=== PATIENT | male | born 1950 | race Caucasian/White ===

== ENCOUNTER 2019-11-07 09:57 | Emergency (ER) | payer MEDICARE ==
[~2019-11-07] VITALS: Ht 177.8 cm; Wt 93.0 kg
[2019-11-07] MEDS ORDERED: ASPIRIN ADULT L81 MG PO (10:39)
[2019-11-07] MEDS ORDERED: ALTOPREV40 MG PO (10:39)
[2019-11-07] MEDS ORDERED: OMEPRAZOLE DR20 MG PO (10:40)
[2019-11-07] MEDS ORDERED: VITAMIN D400 UNI1 PO (10:41)
[2019-11-07] MEDS ORDERED: B-12250 MCG PO (10:41)
[2019-11-07 11:01] LABS: HEMATOCRIT 46.8 % (39.0-50.0); HEMOGLOBIN 15.6 g/dl (14.0-18.0); IMMATURE GRANULOCYTES 0.5 % (0.0-5.0); MEAN CELL VOLUME 97.3 fL CALC (80.0-100.0); MEAN CORPUSCULAR HGB 32.4 pG CALC (26.0-32.0); MEAN CORPUSCULAR HGB CONC 33.3 g/L CALC (32.0-36.0); NEUT# 4.17 thou/uL (1.82-7.42); RED BLOOD COUNT 4.81 mill/uL (4.70-6.10)
[2019-11-07 11:18] LABS: URINE BILIRUBIN - DIPSTICK NEGATIVE (NEGATIVE); URINE BLOOD DIPSTICK NEGATIVE (NEGATIVE); URINE COLOR YELLOW; URINE GLUCOSE - DIPSTICK NEGATIVE (NEGATIVE); URINE KETONE NEGATIVE (NEGATIVE); URINE LEUK ESTERASE NEGATIVE (NEGATIVE); URINE NITRITE - DIPSTICK NEGATIVE (Negative); URINE PROTEIN - DIPSTICK NEGATIVE (NEG-TRACE); URINE UROBILINOGEN - DIPSTICK 0.2 E.U./dL (0.2)
[2019-11-07 11:23] LABS: ALBUMIN 4.6 g/dL (3.2-5.0); ALKALINE PHOSPHATASE 81 u/l (38-126); ANION GAP 18 (6-22 (CALC)); BILIRUBIN, TOTAL 0.9 mg/dL (0.0-1.4); BUN 11 mg/dL (8-23); BUN/CREATININE RATIO 18 (12-20 (CALC)); CARBON DIOXIDE 22 mmol/l (22-30); CHLORIDE 104 mmol/l (95-108); CREATININE 0.6 mg/dL (0.7-1.3); GFR > 60 ML/MIN (>=60 (CALC)); GFR FOR AFR.AMER. > 60 ML/MIN (>=60 (CALC)); LIPASE 121 u/l (23-300); POTASSIUM 4.6 mmol/l (3.5-5.1); SGOT/AST 51 u/l (19-48); SODIUM 139 mmol/l (137-146); TOTAL PROTEIN 7.8 g/dL (6.3-8.2)
[2019-11-07 13:05] VITALS: BP 130/75
[2019-12-11] MEDS ORDERED: LEVOTHYROXIN100 MCG PO (10:53)
[2019-12-11] MEDS ORDERED: PROAIR HFA IN (10:54)
[2019-12-11] MEDS ORDERED: [UNRECOGNIZED DRUG - OTHER] OU (10:56)
== END 2019-11-07 13:05 | disposition home or self-care (01) ==
LOC: ED 09:57
PROVIDERS: Family Medicine
DX: K40.90 Unilateral inguinal hernia, without obstruction or gangrene, not specified as recurrent (principal)
CPT/HCPCS: Q9967

== ENCOUNTER 2019-11-17 11:11 | Observation (INO) | payer MEDICARE ==
[~2019-11-17] VITALS: Ht 177.8 cm; Wt 92.5 kg
[~2019-11-17 11:11] MED LIST: ALTOPREV40 MG PO; ASPIRIN ADULT L81 MG PO; B-12250 MCG PO; OMEPRAZOLE DR20 MG PO; VITAMIN D400 UNI1 PO
[2019-11-17 12:46] LABS: HEMATOCRIT 46.9 % (39.0-50.0); HEMOGLOBIN 15.9 g/dl (14.0-18.0); IMMATURE GRANULOCYTES 0.3 % (0.0-5.0); MEAN CELL VOLUME 96.1 fL CALC (80.0-100.0); MEAN CORPUSCULAR HGB 32.6 pG CALC (26.0-32.0); MEAN CORPUSCULAR HGB CONC 33.9 g/L CALC (32.0-36.0); NEUT# 5.07 thou/uL (1.82-7.42); RED BLOOD COUNT 4.88 mill/uL (4.70-6.10); RED CELL DISTRI WIDTH 13.1 % (11.5-15.5)
[2019-11-17 13:12] LABS: ALBUMIN 4.5 g/dL (3.2-5.0); ALKALINE PHOSPHATASE 68 u/l (38-126); AMYLASE 57 u/l (30-110); ANION GAP 15 (6-22 (CALC)); BILIRUBIN, TOTAL 0.8 mg/dL (0.0-1.4); BUN 12 mg/dL (8-23); BUN/CREATININE RATIO 26 (12-20 (CALC)); CARBON DIOXIDE 24 mmol/l (22-30); CHLORIDE 101 mmol/l (95-108); CREATININE 0.5 mg/dL (0.7-1.3); GFR > 60 ML/MIN (>=60 (CALC)); GFR FOR AFR.AMER. > 60 ML/MIN (>=60 (CALC)); LIPASE 72 u/l (23-300); POTASSIUM 4.1 mmol/l (3.5-5.1); SGOT/AST 43 u/l (19-48); SODIUM 136 mmol/l (137-146); TOTAL PROTEIN 7.7 g/dL (6.3-8.2)
[2019-11-17 17:30] VITALS: BP 130/84
[2019-11-17 17:33] LABS: URINE BILIRUBIN - DIPSTICK NEGATIVE (NEGATIVE); URINE BLOOD DIPSTICK NEGATIVE (NEGATIVE); URINE COLOR YELLOW; URINE GLUCOSE - DIPSTICK NEGATIVE (NEGATIVE); URINE KETONE NEGATIVE (NEGATIVE); URINE LEUK ESTERASE NEGATIVE (NEGATIVE); URINE NITRITE - DIPSTICK NEGATIVE (Negative); URINE PROTEIN - DIPSTICK NEGATIVE (NEG-TRACE); URINE UROBILINOGEN - DIPSTICK 0.2 E.U./dL (0.2)
[2019-11-17 19:10] VITALS: BP 122/79
[2019-11-18 03:38] VITALS: BP 136/72
[2019-11-18 05:24] LABS: HEMATOCRIT 41.7 % (39.0-50.0); HEMOGLOBIN 14.2 g/dl (14.0-18.0); MEAN CELL VOLUME 98.3 fL CALC (80.0-100.0); MEAN CORPUSCULAR HGB 33.5 pG CALC (26.0-32.0); MEAN CORPUSCULAR HGB CONC 34.1 g/L CALC (32.0-36.0); RED BLOOD COUNT 4.24 mill/uL (4.70-6.10); RED CELL DISTRI WIDTH 13.1 % (11.5-15.5)
[2019-11-18 05:53] LABS: ANION GAP 14 (6-22 (CALC)); BUN 10 mg/dL (8-23); BUN/CREATININE RATIO 22 (12-20 (CALC)); CARBON DIOXIDE 24 mmol/l (22-30); CHLORIDE 103 mmol/l (95-108); CREATININE 0.4 mg/dL (0.7-1.3); GFR > 60 ML/MIN (>=60 (CALC)); GFR FOR AFR.AMER. > 60 ML/MIN (>=60 (CALC)); MAGNESIUM 1.9 mg/dL (1.6-2.3); POTASSIUM 3.7 mmol/l (3.5-5.1); SODIUM 137 mmol/l (137-146)
[2019-11-18 08:00] VITALS: BP 130/80
[2019-11-18 14:40] VITALS: BP 148/88
[2019-11-18 18:40] VITALS: BP 131/73
[2019-11-19 03:33] VITALS: BP 140/87
[2019-11-19 05:27] LABS: HEMOGLOBIN 13.9 g/dl (14.0-18.0); IMMATURE GRANULOCYTES 0.6 % (0.0-5.0); MEAN CELL VOLUME 95.9 fL CALC (80.0-100.0); MEAN CORPUSCULAR HGB 33.3 pG CALC (26.0-32.0); MEAN CORPUSCULAR HGB CONC 34.8 g/L CALC (32.0-36.0); NEUT# 9.31 thou/uL (1.82-7.42); RED BLOOD COUNT 4.17 mill/uL (4.70-6.10); RED CELL DISTRI WIDTH 12.9 % (11.5-15.5)
[2019-11-19 05:33] LABS: ANION GAP 14 (6-22 (CALC)); BUN 9 mg/dL (8-23); BUN/CREATININE RATIO 21 (12-20 (CALC)); CARBON DIOXIDE 22 mmol/l (22-30); CHLORIDE 103 mmol/l (95-108); CREATININE 0.4 mg/dL (0.7-1.3); GFR > 60 ML/MIN (>=60 (CALC)); GFR FOR AFR.AMER. > 60 ML/MIN (>=60 (CALC)); MAGNESIUM 1.8 mg/dL (1.6-2.3); POTASSIUM 3.8 mmol/l (3.5-5.1); SODIUM 136 mmol/l (137-146)
[2019-11-19 08:00] VITALS: BP 128/79
[2019-11-19] MEDS ORDERED: METRONIDAZOL500 MG PO (12:11)
[2019-11-19] MEDS ORDERED: CIPROFLOXACN500 MG PO (12:11)
[2019-11-19 15:41] VITALS: BP 124/73
[2019-11-19 18:34] VITALS: BP 119/73
[2019-11-20 04:59] VITALS: BP 124/78
[2019-11-20 08:25] VITALS: BP 140/89
[2019-11-20 15:18] VITALS: BP 130/94
[2019-12-11] MEDS ORDERED: LEVOTHYROXIN100 MCG PO (10:53)
[2019-12-11] MEDS ORDERED: PROAIR HFA IN (10:54)
[2019-12-11] MEDS ORDERED: [UNRECOGNIZED DRUG - OTHER] OU (10:56)
== END 2019-11-20 18:45 | disposition home or self-care (01) ==
LOC: ED 11:11 → ED-I 15:20 → ED 15:35 → MS2 15:36
PROVIDERS: Nurse Practitioner Family; ADMIT Internal Medicine; ATTEND Internal Medicine
DX: K57.33 Diverticulitis of large intestine without perforation or abscess with bleeding (principal); K40.90 Unilateral inguinal hernia, without obstruction or gangrene, not specified as recurrent; E03.9 Hypothyroidism, unspecified; E78.5 Hyperlipidemia, unspecified; G71.00 Muscular dystrophy, unspecified; M19.90 Unspecified osteoarthritis, unspecified site; K22.70 Barrett's esophagus without dysplasia; R45.1 Restlessness and agitation; K21.9 Gastro-esophageal reflux disease without esophagitis; R41.0 Disorientation, unspecified; T40.2X5A Adverse effect of other opioids, initial encounter; Z86.73 Personal history of transient ischemic attack (TIA), and cerebral infarction without residual deficits
CPT/HCPCS: G0378; Q9967; S0164

== ENCOUNTER 2019-12-18 | Day surgery (SDC) | payer MEDICARE ==
[~2019-12-18] MED LIST changes: +CIPROFLOXACN500 MG PO; +LEVOTHYROXIN100 MCG PO; +METRONIDAZOL500 MG PO; +PROAIR HFA IN; +[UNRECOGNIZED DRUG - OTHER] OU
[2019-12-18] MEDS ORDERED: PERCOCET 5/325M1 TAB PO (10:16)
== END 2019-12-18 11:11 | disposition home or self-care (01) ==
PROC: 0YU60JZ Supplement Left Inguinal Region with Synthetic Substitute, Open Approach (ICD-10-PCS; principal; 2019-12-18)
DX: K40.20 Bilateral inguinal hernia, without obstruction or gangrene, not specified as recurrent (principal)
CPT/HCPCS: C9290; J0131; J1100

== ENCOUNTER 2021-10-08 11:53 | Day surgery (SDC) | payer MEDICARE ==
[~2021-10-08] VITALS: Ht 175.3 cm; Wt 88.9 kg
[~2021-10-08 11:53] MED LIST changes: +ASPIRIN ADULT L81 M3 PO; -ASPIRIN ADULT L81 MG PO; +GABAPENTIN100 MG PO; +PERCOCET 5/325M1 TAB PO
[2021-10-08] MEDS ORDERED: TRAMADOL HCL50 MG PO (15:38)
[2021-10-08 16:25] VITALS: BP 129/86
== END 2021-10-08 16:58 | disposition home or self-care (01) ==
LOC: ORM 11:53
PROVIDERS: ATTEND Surgery
PROC: 0YU50JZ Supplement Right Inguinal Region with Synthetic Substitute, Open Approach (ICD-10-PCS; principal; 2021-10-08)
DX: K40.90 Unilateral inguinal hernia, without obstruction or gangrene, not specified as recurrent (principal); E03.9 Hypothyroidism, unspecified; G71.00 Muscular dystrophy, unspecified; Z86.73 Personal history of transient ischemic attack (TIA), and cerebral infarction without residual deficits
CPT/HCPCS: C9290; J0131

== ENCOUNTER 2023-12-23 16:14 | Observation (INO) | payer MEDICARE ==
[~2023-12-23] VITALS: Ht 175.3 cm; Wt 86.8 kg
[~2023-12-23 16:14] MED LIST changes: +TRAMADOL HCL50 MG PO
[2023-12-23] MEDS ORDERED: SODIUM CHLORIDE 0.9% 1,000 ML IV STA (17:29)
[2023-12-23] MEDS ORDERED: ONDANSETRON HCl 4 MG/2 ML SDV IV STA (17:29)
[2023-12-23 17:31] VITALS: BP 118/89
[2023-12-23 17:51] LABS: BASO% 0.1 % (0-3); HEMATOCRIT 48.8 % (39.0-50.0); HEMOGLOBIN 16.6 g/dl (14.0-18.0); IMMATURE GRANULOCYTES 0.1 % (0.0-5.0); LYMPH% 3.2 % (15-41); MEAN CELL VOLUME 96.8 fL CALC (80.0-100.0); MEAN CORPUSCULAR HGB 32.9 pG CALC (26.0-32.0); MONO% 5.7 % (2-13); NEUT# 9.96 thou/uL (1.82-7.42); NEUT% 90.9 % (42-76); RED BLOOD COUNT 5.04 mill/uL (4.70-6.10); RED CELL DISTRI WIDTH 12.9 % (11.5-15.5)
[2023-12-23] MEDS ORDERED: MORPHINE SULFATE 4 MG/ML VIAL IV ONE ×2 (17:55→20:45)
[2023-12-23 18:00] VITALS: BP 127/91
[2023-12-23 18:01] LABS: ALBUMIN 4.7 g/dL (3.2-5.0); ALKALINE PHOSPHATASE 79 u/l (38-126); ANION GAP 13 (6-22 (CALC)); BILIRUBIN, TOTAL 0.9 mg/dL (0.2-1.3); BUN 15 mg/dL (8-23); BUN/CREATININE RATIO 29 (12-20 (CALC)); CARBON DIOXIDE 26 mmol/l (22-30); CHLORIDE 102 mmol/l (95-108); CREATININE 0.5 mg/dL (0.7-1.3); GFR FOR AFR.AMER. > 60 ML/MIN (>=60 (CALC)); GFR OTHER RACES > 60 ML/MIN (>=60 (CALC)); LIPASE 37 u/l (23-300); POTASSIUM 3.5 mmol/l (3.5-5.1); SGOT/AST 36 u/l (19-48); SODIUM 137 mmol/l (137-146); TOTAL PROTEIN 7.7 g/dL (6.3-8.2)
[2023-12-23 18:04] VITALS: BP 128/82
[2023-12-23 19:58] LABS: URINE BLOOD DIPSTICK Negative (NEGATIVE); URINE GLUCOSE - DIPSTICK 100 mg/dL (NEGATIVE); URINE KETONE 15 mg/dL (NEGATIVE); URINE LEUK ESTERASE Negative (NEGATIVE); URINE NITRITE - DIPSTICK Negative (Negative); URINE PH 5.5 (4.5-8.0); URINE PROTEIN - DIPSTICK 30 mg/dL (NEG-TRACE); URINE UROBILINOGEN - DIPSTICK 0.2 E.U./dL (0.2)
[2023-12-23 19:59] LABS: URINE COLOR Yellow
[2023-12-23 20:06] LABS: URINE CASTS RARE lpf (NONE-RARE)
[2023-12-23] MEDS ORDERED: ENOXAPARIN SODIUM 40 MG/0.4 ML SYR SC SCH (21:00)
[2023-12-23] MEDS ORDERED: LACTATED RINGER'S 1,000 ML IV PRN ×2 (21:00→21:10)
[2023-12-23] MEDS ORDERED: MAGNESIUM HYDROXIDE 30 ML UDC PO PRN (21:00)
[2023-12-23] MEDS ORDERED: ACETAMINOPHEN 325 MG/TAB PO PRN (21:00)
[2023-12-23] MEDS ORDERED: ONDANSETRON HCl 4 MG/2 ML SDV IV PRN (21:05)
[2023-12-23] MEDS ORDERED: MORPHINE SULFATE 4 MG/ML VIAL IV PRN (21:05)
[2023-12-23] MEDS ORDERED: DEXTROSE IN LACTATED RINGERS 1,000 ML IV PRN (21:05)
[2023-12-24 02:35] VITALS: BP 128/72
[2023-12-24 05:00] VITALS: BP 111/52
[2023-12-24 06:14] LABS: ALKALINE PHOSPHATASE 71 u/l (38-126); ANION GAP 9 (6-22 (CALC)); BUN 13 mg/dL (8-23); BUN/CREATININE RATIO 35 (12-20 (CALC)); CALCULATED LDLCHOLESTEROL 55 mg/dL (62-129 (CALC)); CARBON DIOXIDE 24 mmol/l (22-30); CHLORIDE 109 mmol/l (95-108); CHOLESTEROL HDL RATIO 2.6 (<4.4 (CALC)); CREATININE 0.4 mg/dL (0.7-1.3); GFR FOR AFR.AMER. > 60 ML/MIN (>=60 (CALC)); GFR OTHER RACES > 60 ML/MIN (>=60 (CALC)); HDL CHOLESTEROL 49 mg/dL (39.0-59.0); MAGNESIUM 1.9 mg/dL (1.6-2.3); SGOT/AST 36 u/l (19-48); SODIUM 139 mmol/l (137-146); TOTAL CHOLESTEROL 130 mg/dl (0-199); TOTAL TRIGLYCERIDES 126 mg/dl (0-149); VLDL CHOLESTROL 25 mg/dl (0-38 (CALC))
[2023-12-24 06:15] LABS: BASO% 0.3 % (0-3); IMMATURE GRANULOCYTES 0.2 % (0.0-5.0); LYMPH% 5.7 % (15-41); MEAN CELL VOLUME 97.5 fL CALC (80.0-100.0); MEAN CORPUSCULAR HGB 33.3 pG CALC (26.0-32.0); MEAN CORPUSCULAR HGB CONC 34.2 g/dL CAL (32.0-36.0); MONO% 8.9 % (2-13); NEUT# 5.61 thou/uL (1.82-7.42); NEUT% 84.9 % (42-76); RED BLOOD COUNT 4.35 mill/uL (4.70-6.10); RED CELL DISTRI WIDTH 13.1 % (11.5-15.5)
[2023-12-24 06:17] LABS: HEMATOCRIT 42.4 % (39.0-50.0); HEMOGLOBIN 14.5 g/dl (14.0-18.0)
[2023-12-24 06:18] VITALS: BP 116/65
[2023-12-24 06:24] LABS: ALBUMIN 3.6 g/dL (3.2-5.0); BILIRUBIN, TOTAL 0.5 mg/dL (0.2-1.3); TOTAL PROTEIN 5.9 g/dL (6.3-8.2)
[2023-12-24] MEDS ORDERED: POTASSIUM CHLORIDE 20MEQ 100 ML IV SCH ×2 (11:30→13:30)
[2023-12-24] MEDS ORDERED: MORPHINE SULFATE 4 MG/ML VIAL IV PRN (12:20)
[2023-12-24 15:11] VITALS: BP 123/91
[2023-12-24 19:28] VITALS: BP 115/70
[2023-12-24 22:36] LABS: C. DIFFICILE TOXIN A&B NEGATIVE (NEGATIVE)
[2023-12-25] MEDS ORDERED: LEVOTHYROXINE SODIUM 75 MCG/TAB PO SCH (06:00)
[2023-12-25] MEDS ORDERED: LEVOTHYROXINE SODIUM 100 MCG TAB PO SCH (06:00)
[2023-12-25 06:55] LABS: BASO% 0.4 % (0-3); EOS% 1.8 % (0-8); HEMATOCRIT 37.9 % (39.0-50.0); HEMOGLOBIN 12.8 g/dl (14.0-18.0); IMMATURE GRANULOCYTES 0.1 % (0.0-5.0); LYMPH% 16.9 % (15-41); MEAN CELL VOLUME 99.2 fL CALC (80.0-100.0); MEAN CORPUSCULAR HGB 33.5 pG CALC (26.0-32.0); MEAN CORPUSCULAR HGB CONC 33.8 g/dL CAL (32.0-36.0); MONO% 11.6 % (2-13); NEUT# 4.65 thou/uL (1.82-7.42); NEUT% 69.2 % (42-76); RED BLOOD COUNT 3.82 mill/uL (4.70-6.10); RED CELL DISTRI WIDTH 13.3 % (11.5-15.5)
[2023-12-25 07:04] VITALS: BP 129/73
[2023-12-25 07:19] LABS: ALKALINE PHOSPHATASE 58 u/l (38-126); ANION GAP 8 (6-22 (CALC)); BILIRUBIN, TOTAL 0.5 mg/dL (0.2-1.3); BUN 12 mg/dL (8-23); BUN/CREATININE RATIO 33 (12-20 (CALC)); CARBON DIOXIDE 24 mmol/l (22-30); CHLORIDE 111 mmol/l (95-108); CREATININE 0.4 mg/dL (0.7-1.3); GFR FOR AFR.AMER. > 60 ML/MIN (>=60 (CALC)); GFR OTHER RACES > 60 ML/MIN (>=60 (CALC)); POTASSIUM 3.2 mmol/l (3.5-5.1); SGOT/AST 30 u/l (19-48); SODIUM 140 mmol/l (137-146); TOTAL PROTEIN 5.2 g/dL (6.3-8.2)
[2023-12-25] MEDS ORDERED: ASPIRIN 81 MG/TAB PO SCH (09:00)
[2023-12-25] MEDS ORDERED: FLUTICASONE PROPIONATE (Nasal) 50MCG/SPRAY INH SCH (14:00)
[2023-12-25 15:00] VITALS: BP 126/78
[2023-12-25 19:34] VITALS: BP 131/72
[2023-12-26 00:45] VITALS: BP 130/75
[2023-12-26 04:56] VITALS: BP 132/73
[2023-12-26 05:56] VITALS: BP 132/73
[2023-12-26 06:54] LABS: BASO% 0.4 % (0-3); EOS% 1.8 % (0-8); HEMATOCRIT 36.2 % (39.0-50.0); HEMOGLOBIN 12.4 g/dl (14.0-18.0); IMMATURE GRANULOCYTES 0.3 % (0.0-5.0); LYMPH% 17.9 % (15-41); MEAN CELL VOLUME 97.3 fL CALC (80.0-100.0); MEAN CORPUSCULAR HGB 33.3 pG CALC (26.0-32.0); MEAN CORPUSCULAR HGB CONC 34.3 g/dL CAL (32.0-36.0); MONO% 9.9 % (2-13); NEUT# 5.08 thou/uL (1.82-7.42); NEUT% 69.7 % (42-76); RED BLOOD COUNT 3.72 mill/uL (4.70-6.10)
[2023-12-26 07:14] LABS: ALBUMIN 2.9 g/dL (3.2-5.0); ALKALINE PHOSPHATASE 63 u/l (38-126); ANION GAP 9 (6-22 (CALC)); BILIRUBIN, TOTAL 0.7 mg/dL (0.2-1.3); BUN 5 mg/dL (8-23); BUN/CREATININE RATIO 16 (12-20 (CALC)); CARBON DIOXIDE 26 mmol/l (22-30); CHLORIDE 106 mmol/l (95-108); CREATININE 0.3 mg/dL (0.7-1.3); GFR FOR AFR.AMER. > 60 ML/MIN (>=60 (CALC)); GFR OTHER RACES > 60 ML/MIN (>=60 (CALC)); MAGNESIUM 1.7 mg/dL (1.6-2.3); SGOT/AST 35 u/l (19-48); SODIUM 137 mmol/l (137-146); TOTAL PROTEIN 5.1 g/dL (6.3-8.2)
[2023-12-26] MEDS ORDERED: POTASSIUM CHLORIDE 20 MEQ/TAB PO SCH (09:30)
[2023-12-26 09:59] VITALS: BP 116/71
[2023-12-26] MEDS ORDERED: POTASSIUM CHLORIDE 20 MEQ/PKT POWDER PO SCH (11:00)
[2023-12-26] MEDS ORDERED: Pantoprazole Sodium 40 MG VIAL (Protonix) IV SCH (12:30)
[2023-12-26 16:14] VITALS: BP 126/75
[2023-12-26 19:13] VITALS: BP 129/74
[2023-12-26] MEDS ORDERED: traZODone HCL 50 MG/TAB PO SCH (21:00)
[2023-12-27 05:16] VITALS: BP 128/80
[2023-12-27 05:42] LABS: BASO% 0.5 % (0-3); EOS% 2.6 % (0-8); HEMATOCRIT 38.2 % (39.0-50.0); HEMOGLOBIN 13.3 g/dl (14.0-18.0); IMMATURE GRANULOCYTES 0.3 % (0.0-5.0); LYMPH% 27.4 % (15-41); MEAN CELL VOLUME 96.7 fL CALC (80.0-100.0); MEAN CORPUSCULAR HGB 33.7 pG CALC (26.0-32.0); MEAN CORPUSCULAR HGB CONC 34.8 g/dL CAL (32.0-36.0); MONO% 11.9 % (2-13); NEUT# 3.55 thou/uL (1.82-7.42); NEUT% 57.3 % (42-76); RED BLOOD COUNT 3.95 mill/uL (4.70-6.10); RED CELL DISTRI WIDTH 12.9 % (11.5-15.5)
[2023-12-27 05:53] LABS: ALBUMIN 3.3 g/dL (3.2-5.0); ALKALINE PHOSPHATASE 61 u/l (38-126); ANION GAP 6 (6-22 (CALC)); BILIRUBIN, TOTAL 0.7 mg/dL (0.2-1.3); BUN 5 mg/dL (8-23); BUN/CREATININE RATIO 13 (12-20 (CALC)); CARBON DIOXIDE 31 mmol/l (22-30); CHLORIDE 104 mmol/l (95-108); CREATININE 0.4 mg/dL (0.7-1.3); GFR FOR AFR.AMER. > 60 ML/MIN (>=60 (CALC)); GFR OTHER RACES > 60 ML/MIN (>=60 (CALC)); MAGNESIUM 1.8 mg/dL (1.6-2.3); POTASSIUM 3.5 mmol/l (3.5-5.1); SGOT/AST 33 u/l (19-48); SODIUM 137 mmol/l (137-146); TOTAL PROTEIN 5.6 g/dL (6.3-8.2)
[2023-12-27 06:47] VITALS: BP 138/75
[2023-12-27] MEDS ORDERED: ZOFRAN4 MG/TAB PO (11:13)
== END 2023-12-27 15:00 | disposition home or self-care (01) ==
LOC: ED 16:14 → ED-I 20:00 → ED 23:51 → MS2 23:52
PROVIDERS: Nurse Practitioner; Nurse Practitioner Family; Surgery; ADMIT Student in an Organized Health Care Education/Training Program; ATTEND Student in an Organized Health Care Education/Training Program
DX: R19.7 Diarrhea, unspecified (principal); R10.84 Generalized abdominal pain; E87.6 Hypokalemia; G71.00 Muscular dystrophy, unspecified; E03.9 Hypothyroidism, unspecified; E78.00 Pure hypercholesterolemia, unspecified; Z86.73 Personal history of transient ischemic attack (TIA), and cerebral infarction without residual deficits; Z98.890 Other specified postprocedural states; Z87.19 Personal history of other diseases of the digestive system
CPT/HCPCS: G0378; J1650; Q9967; S0164

== ENCOUNTER 2024-10-25 11:41 | Emergency (ER) | payer MEDICARE ==
[~2024-10-25] VITALS: Ht 175.3 cm; Wt 81.0 kg
[~2024-10-25 11:41] MED LIST changes: +ZOFRAN4 MG/TAB PO
[2024-10-25] MEDS ORDERED: KETOROLAC TROMETHAMINE 30 MG/ML SDV IM ONE (12:25)
[2024-10-25] MEDS ORDERED: predniSONE 20 MG/TAB PO ONE (12:25)
[2024-10-25] MEDS ORDERED: ORPHENADRINE CITRATE 30 MG/ML AMP IM ONE (12:25)
[2024-10-25 13:35] VITALS: BP 122/80
[2024-10-25] MEDS ORDERED: PREDNISONE10 MG PO (13:36)
[2024-10-25] MEDS ORDERED: NAPROXEN500 MG PO (13:36)
[2024-10-25] MEDS ORDERED: CYCLOBENZAPRINE10 MG PO (13:36)
== END 2024-10-25 13:54 | disposition home or self-care (01) ==
LOC: ED 11:41
DX: M47.22 Other spondylosis with radiculopathy, cervical region (principal); G71.00 Muscular dystrophy, unspecified; Z86.73 Personal history of transient ischemic attack (TIA), and cerebral infarction without residual deficits